=== PATIENT | female | born 1950 | race Caucasian/White ===

== ENCOUNTER 2017-05-21 11:26 | Observation (INO) ==
[2017-05-21] MEDS ORDERED: SODIUM CHLORIDE 0.9% 1,000 ML IV STA (11:47)
--- NOTE | 2017-05-21 12:03 | Emergency Department Note ---
Nav Elkins Mantricia, am scribing for, and in the presence of, Nj Springer MD 11:54. Racheal Elkins James D, MD, personally performed the services described in this documentation, ascribed by Eric Chopra in my presence, and it is both accurate and complete . Arrival - Arrival Chief Complaint: Syncope Stated Complaint: sob ED Nursing Triage Note: PT REPORTS INC SOB. PT ALSO REPORTS SHE HAD SYNCOPE EPISODE WITNESSED BY HER HER DAUGHTER/ NO LOC. PT DOES C/O PAIN TO BACK OF HER HEAD. PT RA O2 SATS 87%. Mode of Arrival: Stretcher Limitations: No Limitations Source: Patient, RN Notes Reviewed Time Seen by Provider: 05/21/17 11:44 - History of Present Illness HPI Narrative: Pt is a 66 y/o white female arriving to ED by EMS with c/o SOB that onset today. Pt seems to be confused and is a poor historian. When asked during exam about SOB, she denies experiencing SOB today. Daughter reports that pt became dizzy today and had a syncopal episode. She reports that pt was in and out of consciousness for "a few minutes." Pt denies any chest pain or heart palpitations. She states that she has not eaten any food today. Pt has a PMHx of HTN, TIA, and COPD with a SHx of smoking 1 pack of cigarettes daily. At time of exam, pt's heart rate is 86. No other complaints were reported to ED. Onset (ago): hour(s) Consistency: constant Severity: mild Allergies/Adverse Reactions: Allergies Allergy/AdvReac Type Severity Reaction Status Date / Time No Known Allergies Allergy Verified 04/28/15 08:54 Home Medications: Home Medications Medication Instructions Recorded Confirmed Type No Known Home Medications [No 05/21/17 05/21/17 History Known Home Medications] Review of System - Review of System 12 point system: reviewed and no additional remarkable complaints except as stated - Review of System Constitutional: Absent: chills, diaphoresis, fever Respiratory: Present: other (SOB). Absent: cough Cardiovascular: Absent: chest pain Gastrointestinal: Absent: abdominal pain, nausea, vomiting, diarrhea Musculoskeletal: Absent: arm pain, back pain, leg pain, neck pain Medical,Surgical,& Family Hx - Medical History Cardio: History of: Hypertension Neurology: History of: TIA Endocrine: History of: Dyslipidemia Respiratory: History of: COPD - Family History Family History: Reports;: Family Diabetes - Social History Smoking Status: Smoker, status unknown Exam Vital Signs: Vital Signs Temperature 97.2 F L 05/21/17 11:45 Pulse Rate 80 05/21/17 11:45 Respiratory Rate 19 05/21/17 11:45 Blood Pressure 174/102 05/21/17 11:45 O2 Sat by Pulse Oximetry 96 05/21/17 11:31 GENERAL: This is a chronically ill-appearing white female in no apparent distress. VITAL SIGNS: Reviewed HEENT: Temporal wasting bilaterally. Pupils are equal round react to light. Extraocular movements are intact. Oropharynx is benign with dry mucous membranes. Poor dentition. NECK: Neck is soft and supple without tenderness. There are no masses. There is no lymphadenopathy. LUNGS: Lungs are clear to auscultation. Chest rises symmetrically. There is no chest wall tenderness. CV: Heart is regular rate and rhythm without murmurs rubs or gallops. ABDOMEN: Abdomen is soft, nontender to palpation. There are no abdominal abnormal masses palpated. There is no organomegaly. Bowel sounds are present and active. SKIN: Skin is warm and dry. No rash. Poor turgor EXTREMITIES: Patient has full range of motion without tenderness. There is no pedal edema. NEUROLOGIC: Awake alert and oriented to person. Cranial nerves II through XII are grossly intact. Motor is 5 over 5 in all extremities bilaterally. Course - Consultations Consultation #1: Discussed with hospitalist. Patient will be admitted to their service. Time: 13:08 Results - Labs CBC & BMP: 05/21/17 11:34 05/21/17 11:34 Lab Results: I have reviewed the patients labs Labs: Laboratory Tests 05/21/17 05/21/17 11:34 11:47 ABG pH 7.430 ABG pCO2 42.2 ABG pO2 125.0 H ABG HCO3 27.3 H ABG Total CO2 23.7 ABG O2 Saturation 98.4 ABG Base Excess 3.3 H Troponin I 0.071 H Serum Alcohol < 15 L - EKG EKG results: interpreted by ERMD - Impressions EKG: Normal sinus rhythm with a rate of 71, short VT, ST segment depression laterally consistent with ischemia. - Diagnostic Findings Procedure: Chest x-ray: image reviewed by me (Hyperinflation bilaterally. No infiltrates, no pleural effusions.), CT - chest: image reviewed by me (CT chest PA gram. No evidence of pulmonary embolus.), CT: image reviewed by me (CT head : No acute intracranial lesion or hemorrhage.) Disposition Clinical Impression: Syncope, Dyspnea, Hypokalemia Case discussed with: patient Disposition: Still a Patient Condition: Stable
--- NOTE | 2017-05-21 12:06 | EKG Report ---
Stationary ECG Study [facility] ER Test Date: 05/21/2017 12:05:45 PM Pat Name: THERESA JAIME Department: Room: Gender: F Open Claims Representative: : 1950 Requested by: Nj Lubin Order Number: [id number] Reading MD: FEDERICA ROSA Intervals [place] Rate: 71 P: 45 IA: 112 QRS: 120 QRSD: 89 T: -16 QT: 403 QTc: 426 Interpretive Statements SINUS RHYTHM POSSIBLE RIGHT VENTRICULAR HYPERTROPHY SEPTAL MYOCARDIAL INFARCTION, PROBABLY OLD MODERATE T-WAVE ABNORMALITY, CONSIDER LATERAL ISCHEMIA Electronically Signed On 05-21-17 18:19:23 CDT by FEDERICA ROSA [email or web address]
[2017-05-21 12:10] LABS: Basophils # 0.1 10*3/uL (0.0-0.2); Basophils % 0.7 % (0.0-0.8); Eosinophils # 0.1 10*3/uL (0.0-0.87); Eosinophils % 1.6 % (0.00-10.9); Hematocrit 44.6 VOL% (35.7-47.0); Hemoglobin 15.6 GM/DL (12.0-16.0); Immature Granulocytes % 0.2 %; Immature Granulocytes Absolute 0.02 #; Lymphocytes # 2.1 10*3/uL (1.4-4.0); Lymphocytes % 25.2 % (21.3-54.2); Mean Corpuscular Hemoglobin 30 PG (27-34); Mean Corpuscular Volume 85.8 FL (87-102); Mean Platelet Volume 10.8 FL (9.6-12.0); Monocytes # 0.5 10*3/uL (0.11-0.8); Monocytes % 5.7 % (1.7-12.7); Neutrophils # 5.5 10*3/uL (1.4-7.4); Neutrophils % 66.6 % (38.7-73.9); Platelet Count 184 T/CUMM (130-400); Red Cell Distribution Width 13.4 % (9.3-17.3); White Blood Count 8.3 T/CUMM (4-12)
[2017-05-21 12:18] LABS: ABG Base Excess 3.3 MMOL/L (-2.5-2.5); ABG HCO3 27.3 MMOL/L (20-26); ABG Oxygen Saturation 98.4 % (95-100); ABG PCO2 42.2 MM HG (35-48); ABG TCO2 23.7 MMOL/L (23-27)
[2017-05-21 12:23] LABS: INR 1.1; PT Patient Result 11.3 SECS
[2017-05-21 12:37] LABS: Alanine Aminotransferase 16 U/L (13-56); Albumin 4.2 G/DL (3.4-5.0); Alkaline Phosphatase 94 U/L (45-117); Aspartate Amino Transferase 16 U/L (0-37); Blood Urea Nitrogen 14 MG/DL (7-18); Calcium 9.5 MG/DL (8.5-10.1); Glucose 121 MG/DL (74-106); Osmolality,Calculated 274.8 MOS/KG (273-304); Sodium 137 MMOL/L (136-145); Total Protein 8.4 G/DL (6.4-8.3)
[2017-05-21 12:39] LABS: Troponin I Only 0.071 NG/ML (0.00-0.045)
--- NOTE | 2017-05-21 12:44 | XRay Report ---
Portable chest. Indication: Shortness of breath. Comparison: December 27, 2010. The heart and mediastinal contours are unremarkable. There is calcific plaque present within the aortic knob. The pulmonary vasculature is normal. The lung hamilton are hyperexpanded. Fibrotic changes are noted. No consolidation, pneumothorax, or pleural effusion. Osseous structures are unremarkable. Impression: COPD. PROCEDURE INTERPRETED AT [facility] [place] DEPARTMENT OF RADIOLOGY Final Report Signed by: Dr. Lien Ambrocio
[2017-05-21] MEDS ORDERED: POTASSIUM CHLORIDE 20 MEQ TABLET PO STA (13:08)
--- NOTE | 2017-05-21 13:08 | CT Report ---
CT of the head without contrast. Indication: Syncope. Comparison: April 28, 2015. There is heavy calcific plaque present within the intracranial internal carotid arteries. There is generalized prominence of the ventricles and sulci, consistent with atrophy. There are prominent areas of low density in the periventricular white matter. There are bilateral foci of low density within the thalami. No mass effect or midline shift. No evidence of acute hemorrhage. No cortical infarcts are seen at this time. The calvarium is intact. Included paranasal sinuses and the mastoid air cells are clear. Impression: Generalized atrophy, and prominent white matter low density. Usually, white matter low density is attributable to chronic microvascular ischemia. Other entities that can cause low density in the white matter including demyelinating processes and post viral and postinflammatory entities. There are bilateral the thalamic lacunar infarcts. No acute intracranial process is seen. The CT exam was performed using one or more of the following dose reduction techniques: Automated exposure control, adjustment of the mA and/or kV according to patient size, or use of iterative reconstruction technique. PROCEDURE INTERPRETED AT [facility] DEPARTMENT OF RADIOLOGY Final Report Signed by: Dr. Lien Ambrocio
--- NOTE | 2017-05-21 13:13 | CT Report ---
CT of the chest with intravenous contrast, PE protocol. Axial images were obtained with sagittal and coronal 2-D and 3-D reconstructions. Indication: Shortness of breath. 80 cc Omni 350. The heart size is normal. There is prominent left ventricular hypertrophy. There is coronary artery calcification. There is atherosclerotic plaque present within a normal caliber thoracic aorta. The thyroid gland is normal in size. There is no supraclavicular or axillary lymph. There is no hilar or mediastinal lymphadenopathy. There is no evidence of pulmonary thromboembolism. There are prominent centrilobular emphysematous changes bilaterally and interstitial fibrosis is seen. There is no infiltrate. No pleural effusion. There is increased soft tissue stranding around the central bronchi bilaterally in a perihilar distribution. The osseous structures are diffusely demineralized. Impression: Findings of COPD. No evidence of pulmonary thromboembolism. The CT exam was performed using one or more of the following dose reduction techniques: Automated exposure control, adjustment of the mA and/or kV according to patient size, or use of iterative reconstruction technique. PROCEDURE INTERPRETED AT [facility] DEPARTMENT OF RADIOLOGY Final Report Signed by: Dr. Lien Ambrocio
[2017-05-21] MEDS ORDERED: POTASSIUM CHLORIDE 20 MEQ TABLET PO ONE (13:17)
--- NOTE | 2017-05-21 14:59 | Hospitalist History & Physical ---
Assessment and Plan - Time spent with patient Time spent with patient: Greater than 30 minutes (1) Syncope Status: Acute Assessment and plan: Etiology unclear at present. Head CT is negative as well as chest CT. Will obtain echo, carotid Dopplers and obtain orthostatic vitals. Current Visit: Yes (2) COPD (chronic obstructive pulmonary disease) Status: Acute Assessment and plan: Evidence of COPD per chest x-ray. Patient is dyspneic however she does not feel any more short of breath than normal. Will initiate breathing treatments as needed. Current Visit: Yes (3) Dyspnea Status: Acute Assessment and plan: As above. Current Visit: Yes (4) Hypokalemia Status: Acute Assessment and plan: K Dur per potassium replacement Current Visit: Yes History of Present Illness Chief complaint: Syncope History of present illness: Ms. Ralph is a 66 year old white female with a past medical history significant for hypertension, TIA, COPD who presents to the emergency room today with complaints of syncope earlier today. Patient has a daughter who is at bedside report that the patient became dizzy and experienced a syncopal episode while in the kitchen this morning. The patient does admit to a history of medical noncompliance. She states that she has been noncompliant with her medications and has not taken any of her medicines in 2 months. She denies previous syncopal episodes. She further denies hematemesis or BRBPR, headache, chest pain, nausea/vomiting, numbness/tingling, lower extremity edema. Lab work is significant for PO2 125, HCO3 27.3, potassium 3.0, serum glucose 121, troponin I 0.071, total protein 8.4, serum alcohol less than 15. Head CT shows no acute intracranial process. CT of the chest PE reveals findings consistent with COPD, no evidence of pulmonary thromboembolism. This case has been discussed with both Dr. Springer, ER physician, and Dr. Cartagena, admitting physician, and the patient will be admitted to the hospital medicine service for further evaluation and treatment. CODE STATUS has been discussed; patient is a full code. Home medications have been reviewed and reconciled. Home Medications Medication Instructions Recorded Confirmed Type No Known Home Medications [No 05/21/17 05/21/17 History Known Home Medications] Allergies Allergy/AdvReac Type Severity Reaction Status Date / Time No Known Allergies Allergy Verified 04/28/15 08:54 Medical,Surgical,& Family Hx - Medical History Cardio: History of: Hypertension Neurology: History of: TIA Endocrine: History of: Dyslipidemia Respiratory: History of: COPD - Family History Family History: Reports;: Family Diabetes, Family Hypertension - Social History Smoking Status: Current every day smoker Have you smoked in the last 12 months: Yes Time spent discussing smoking cessation with patient: 3 to 10 minutes Frequency of Alcohol Use: Occasionally Type of Drug Use: None Marital Status: Single Lives With:: Children Functional capacity: independent ambulation 12 point system: reviewed and no additional remarkable complaints except as stated Exam - Constitutional Vitals: Period Temp Pulse Resp BP Sys/Graf Pulse Ox Last 24 Hr 97.2 F-97.2 F 80-80 18-19 174-174/102-102 96 Exam: General appearance: Under weight, no acute distress - Head Head exam: Present: normocephalic, atraumatic, poor dentition - Eye Eye exam: Present: EOMI. Absent: conjunctival injection, nystagmus Pupils: Present: REE, normal accommodation - ENT ENT exam: Present: normal exam, normal external ear exam - Neck Neck exam: Present: normal inspection. Absent: lymphadenopathy, tenderness, thyromegaly - Respiratory Respiratory exam: Present: Decreased breath sounds bilaterally. Absent: rales, rhonchi, wheezes - Cardiovascular Cardiovascular exam: Present: regular rate and rhythm. Absent: carotid bruit, gallop, rubs - GI/Abdominal GI/Abdominal exam: Present: normal bowel sounds. Absent: ascites, distended, mass - Extremities Exam Extremities exam: Present: normal inspection, normal capillary refill. Absent: edema - Back Exam Back exam: Absent: CVA tenderness (L), CVA tenderness (R) - Neurological Exam Neurological exam: Present: alert, oriented X3, CN II-XII intact, reflexes normal - Psychiatric Psychiatric exam: Present: normal affect, normal mood - Skin Skin exam: Present: normal color, warm, dry Results - Labs CBC & BMP: 05/21/17 11:34 05/21/17 11:34 Lab Results: I have reviewed the past 24 hour labs - Diagnostic Findings Procedure: CT - chest: image reviewed by me, report reviewed by me, CT: image reviewed by me, report reviewed by me
[2017-05-21] MEDS ORDERED: ALBUTEROL/IPRATROPIUM 3 ML NEB RESP TX PRN (15:40)
[2017-05-21] MEDS ORDERED: ONDANSETRON 4 MG/2 ML VIAL IV PRN (15:40)
[2017-05-21] MEDS ORDERED: hydrALAZINE 20 MG/1 ML VIAL IV PRN (15:40)
[2017-05-21] MEDS ORDERED: cloNIDine 0.1 MG TABLET PO ONE (17:15)
[2017-05-21] MEDS: LISINOPRIL/HCTZ 20-25 MG TABLET PO SCH (17:30)
[2017-05-21] MEDS: PANTOPRAZOLE 40 MG TABLET PO SCH (17:31)
[2017-05-21] MEDS: SODIUM CHLORIDE 0.9% 1,000 ML IV SCH (17:31)
[2017-05-21 17:42] LABS: Apearance,Urine CLEAR (Clear); Bilirubin,Urine Negative (Negative); Blood, Urine Small mg/dL (Negative); Glucose,Urine (UA) Negative (Negative); Ketones,Urine Negative (Negative); Mucus,Urine Occasional /LPF (Occasional); Nitrite,Urine Negative (Negative); Protein,Urine Negative; RBC,Urine 1 /HPF (0-4); Squamous Epithelial Cell,Urine Occasional /HPF (0-10); Urine Color Straw (Yellow); Urine Specific Gravity 1.015 (1.001-1.035); Urine Urobilinogen < 2.0 EU/DL (0.2-1.0); WBC,Urine 1 /HPF (0-6)
[2017-05-21 17:49] LABS: Barbiturates Screen,Urine Negative (Negative); Benzodiazepines Screen,Urine Negative (Negative); Cannabinoid Screen,Urine Negative (Negative); Opiate Screen,Urine Negative (Negative); Phencyclidine Screen,Urine Negative (Negative)
[2017-05-21] MEDS: ENOXAPARIN 40 MG/0.4 ML SYRINGE SUBCUT SCH (20:47)
[2017-05-21] MEDS: CARVEDILOL 12.5 MG TABLET PO SCH (20:47)
[2017-05-22] MEDS: SODIUM CHLORIDE 0.9% 1,000 ML IV SCH ×3 (01:53→17:02)
[2017-05-22 06:47] LABS: Basophils # 0.1 10*3/uL (0.0-0.2); Basophils % 0.5 % (0.0-0.8); Eosinophils # 0.2 10*3/uL (0.0-0.87); Eosinophils % 1.4 % (0.00-10.9); Immature Granulocytes % 0.4 %; Immature Granulocytes Absolute 0.04 #; Lymphocytes # 1.7 10*3/uL (1.4-4.0); Lymphocytes % 15.7 % (21.3-54.2); Mean Corpuscular HGB Conc 34.2 GM/DL (32-36); Mean Corpuscular Hemoglobin 30 PG (27-34); Mean Corpuscular Volume 87.6 FL (87-102); Mean Platelet Volume 11.6 FL (9.6-12.0); Monocytes # 0.7 10*3/uL (0.11-0.8); Monocytes % 6.7 % (1.7-12.7); Neutrophils # 8.3 10*3/uL (1.4-7.4); Neutrophils % 75.3 % (38.7-73.9); Platelet Count 172 T/CUMM (130-400); Red Cell Distribution Width 13.9 % (9.3-17.3)
[2017-05-22 07:02] LABS: Calcium 8.5 MG/DL (8.5-10.1); Osmolality,Calculated 286.1 MOS/KG (273-304); Potassium 3.1 MMOL/L (3.5-5.1)
[2017-05-22 07:13] LABS: Hemoglobin 12.3 GM/DL (12.0-16.0); Red Blood Count 4.11 MC/CUMM (3.8-5.5)
[2017-05-22] MEDS: LISINOPRIL/HCTZ 20-25 MG TABLET PO SCH (09:12)
[2017-05-22] MEDS: PANTOPRAZOLE 40 MG TABLET PO SCH (09:12)
[2017-05-22] MEDS: CARVEDILOL 12.5 MG TABLET PO SCH (09:12)
[2017-05-22] MEDS ORDERED: POTASSIUM CHLORIDE 20 MEQ TABLET PO ONE (09:42)
[2017-05-22] MEDS: amLODIPine 10 MG TABLET PO SCH (10:39)
[2017-05-22] MEDS: NEBIVOLOL 10 MG TABLET PO SCH (10:39)
--- NOTE | 2017-05-22 13:39 | Hospitalist Progress Note ---
Assessment and Plan (1) Syncope Status: Acute Assessment and plan: 1)syncope- no further symptoms. She thinks she was out for 10 minutes. Her daughter was with her but is not here to give history or confirm that she was unresponisve for 10 minutes, which seems like a long time. echo, dopplers, carotids pending. tele has been NSR since admission. If other studies ok, likely this was due to her HTN. No focal neuro deficits. 2)HTN- restart Bystolic instead of coreg. add also scheduled oral hydralazine. continue lisinopril. add asa. 3)COPD- at baseline. Current Visit: Yes (2) Hypokalemia Status: Acute Current Visit: Yes (3) COPD (chronic obstructive pulmonary disease) Status: Acute Current Visit: Yes Hospitalist: Subjective Interval history: Mrs Ralph is feeling well today and wants to go home. She understands she has some tests that should be completed prior to discharge and agrees to stay. She stopped her meds 6 months ago because the doctor she liked quit takign . She did not like the other doctor she saw and describes herself and a "Problem" because she is obnoxious and rude and wants what she wants. She used to take Bystolic and says it really worked. Exam - Constitutional Vitals: Period Temp Pulse Resp BP Sys/Graf Pulse Ox Last 24 Hr 97.2 F-98.2 F 63-78 16-24 129-223/58-105 92-100 General appearance: no acute distress, under weight - Eye Eye exam: Present: EOMI. Absent: scleral icterus - Respiratory Respiratory exam: Present: clear to auscultation bilaterally - Cardiovascular Cardiovascular exam: Present: regular rate and rhythm - GI/Abdominal GI/Abdominal exam: Present: normal bowel sounds, soft. Absent: tenderness - Extremities Exam Extremities exam: Absent: edema Results - Labs CBC & BMP: 05/22/17 06:02 05/22/17 06:02 Lab Results: I have reviewed the past 24 hour labs Specialty Discharge - Follow Up or Referrals Follow up with: Tone Antonio MD [Physician] - 05/30/17 9:30 am
[2017-05-22] MEDS: ASPIRIN EC 325 MG TABLET PO SCH (14:25)
--- NOTE | 2017-05-22 17:43 | ECHO Report ---
Alba Ralph Exam Date: 05/22/2017 11:03 Referring Physician: Technologist: ollie Mccallum ARDMS, RVT Age: 66 Ht (in): 61 Wt (lb): 85 Gender: F Exam Location: [facility] Echo Indications: Syncope and collapse, Shortness of breath BP: 185 / 82 HR: 63 Rhythm: Sinus Technical Quality: average IMPRESSIONS Left ventricular ejection fraction is estimated at 65%. There is grade 1 diastolic dysfunction. MEASUREMENTS (Male / Female) Normal Values 2D ECHO LV Diastolic Diameter PLAX 3.6 cm 4.2 - 5.9 / 3.9 - 5.3 cm LV Systolic Diameter PLAX 2.1 cm LV Fractional Shortening PLAX 41.6 % IVS Diastolic Thickness 1.5 cm 0.6 - 1.0 / 0.6 - 0.9 cm LVPW Diastolic Thickness 0.9 cm 0.6 - 1.0 / 0.6 - 0.9 cm RV Internal Dim ED PLAX 1.9 cm Aortic Root Diameter 2.1 cm LA Systolic Diameter LX 2.9 cm 3.0 - 4.0 / 2.7 - 3.8 cm FINDINGS Left Ventricle Normal left ventricular cavity size. Left ventricular ejection fraction is estimated at 65%. There is grade 1 diastolic dysfunction Right Ventricle The right ventricle is normal in size and function. Right Atrium The right atrium is normal in size. Left Atrium The left atrium is normal in size. Mitral Valve Morphologically normal mitral valve. Mild mitral valve regurgitation. Aortic Valve Morphologically normal aortic valve without significant sclerosis or stenosis. There is no aortic regurgitation. Tricuspid Valve Morphologically normal tricuspid valve without significant stenosis or regurgitation. Pulmonic Valve Morphologically normal pulmonic valve without significant stenosis. There is no pulmonic regurgitation. Pericardium Normal pericardium without effusion. Aorta Normal ascending aorta dimension. Pamela Vivar (Electronically Signed) Final Date: 22 May 2017 17:42
[2017-05-22] MEDS: ENOXAPARIN 40 MG/0.4 ML SYRINGE SUBCUT SCH (20:59)
[2017-05-23] MEDS: SODIUM CHLORIDE 0.9% 1,000 ML IV SCH ×2 (01:10→08:45)
[2017-05-23 05:40] LABS: Basophils # 0.1 10*3/uL (0.0-0.2); Basophils % 0.5 % (0.0-0.8); Eosinophils # 0.3 10*3/uL (0.0-0.87); Eosinophils % 2.7 % (0.00-10.9); Hematocrit 33.9 VOL% (35.7-47.0); Hemoglobin 11.9 GM/DL (12.0-16.0); Immature Granulocytes % 0.4 %; Immature Granulocytes Absolute 0.04 #; Lymphocytes # 2.9 10*3/uL (1.4-4.0); Lymphocytes % 30.2 % (21.3-54.2); Mean Corpuscular HGB Conc 35.1 GM/DL (32-36); Mean Corpuscular Hemoglobin 30 PG (27-34); Mean Corpuscular Volume 86.3 FL (87-102); Mean Platelet Volume 11.4 FL (9.6-12.0); Monocytes # 0.8 10*3/uL (0.11-0.8); Monocytes % 8.9 % (1.7-12.7); Neutrophils # 5.4 10*3/uL (1.4-7.4); Neutrophils % 57.3 % (38.7-73.9); Platelet Count 169 T/CUMM (130-400); Red Blood Count 3.93 MC/CUMM (3.8-5.5); White Blood Count 9.4 T/CUMM (4-12)
[2017-05-23 06:06] LABS: Calcium 8.4 MG/DL (8.5-10.1); Osmolality,Calculated 279.4 MOS/KG (273-304); Potassium 3.1 MMOL/L (3.5-5.1)
[2017-05-23] MEDS: ASPIRIN EC 325 MG TABLET PO SCH (08:38)
[2017-05-23] MEDS: amLODIPine 10 MG TABLET PO SCH (08:39)
[2017-05-23] MEDS: NEBIVOLOL 10 MG TABLET PO SCH (08:40)
[2017-05-23] MEDS: PANTOPRAZOLE 40 MG TABLET PO SCH (08:41)
[2017-05-23] MEDS ORDERED: LISINOPRIL/HCTZ 20-12.5 MG TABLET PO SCH (09:00)
[2017-05-23] MEDS ORDERED: ATORVASTATIN 20 MG TABLET PO SCH (09:30)
--- NOTE | 2017-05-23 09:30 | Discharge Summary ---
Hospital Course - Hospital Course Hospital Course: Ms Ralph presented after a spell of syncope at home. She has been monitored on telemetry during her stay and her heart rhythm has been NSR. HEr echo looked normal. Her carotid dopplers showed some blockage and CTA of neck report is pending. She has no focal neuro changes or any recurrence of her symptoms. Her uncontrolled blood pressure is the most likely reason she had a spell. She stopped her meds months ago and her BP at presentation was over 200. We have reinitiated medicine and she is tolerating it so far with most recent SBP of 132. She will follow up in clinic with a new doctor, Dr Begum in a week. She will also see Dr Tomas in a week or so to get results of the CTA and arrange monitoring of her carotid disease. She will also start asa daily and lipitor. She is feeling good and is anxious to return home. As she has received maximum benefit from this hospital stay she will be discharged home today. - Time spent with patient Time with patient DS: Greater than 30 minutes (discharge planning, exam and test review, medicine reconciliation, documentation required 40 minutes) Diagnosis - Discharge Diagnosis (1) Syncope Status: Resolved (2) Hypokalemia Status: Resolved (3) COPD (chronic obstructive pulmonary disease) Status: Chronic (4) Uncontrolled hypertension Status: Chronic Specialty Discharge - Follow Up or Referrals Follow up with: Tone Antonio MD [Physician] - 05/30/17 9:30 am Don Tomas MD [Physician] - 2 Weeks (follow up CTA and monitor carotid disease) - Speciality Discharge Instructions Internal Medicine Instructions: Take your new medicines and allow time to adjust to being on meds before you decide whether you need to change them. Discharge Plan - Discharge Data Disposition: Disch To Home/Self Care Condition at Discharge: Stable Discharge Diet: heart healthy Activity: resume usual activities as tolerated - Discharge Medications New Aspirin 81 mg PO DAILY #30 tab.chew Atorvastatin [Lipitor] 20 mg PO DAILY #30 tablet Lisinopril/Hctz 20-12.5 [Prinzide 20-12.5] 2 tablet PO DAILY #30 tablet amLODIPine [Norvasc] 10 mg PO DAILY #30 tablet Nebivolol [Bystolic] 20 mg PO DAILY #30 tablet - Follow Up or Referral Follow Up: Tone Antonio MD [Physician] - 05/30/17 9:30 am Don Tomas MD [Physician] - - Forms/Instructions Instructions: Chronic Hypertension (DC) Exam - Constitutional Vitals: Period Temp Pulse Resp BP Sys/Graf Pulse Ox Last 24 Hr 97.4 F-98.0 F 60-73 18-20 142-168/65-81 93-98 General appearance: no acute distress, under weight - Head Head exam: Present: normocephalic, atraumatic - Eye Eye exam: Present: EOMI. Absent: scleral icterus - Respiratory Respiratory exam: Present: clear to auscultation bilaterally - Cardiovascular Cardiovascular exam: Present: regular rate and rhythm - GI/Abdominal GI/Abdominal exam: Present: normal bowel sounds, soft. Absent: tenderness - Extremities Exam Extremities exam: Absent: edema - Neurological Exam Neurological exam: Present: alert, oriented X3 - Skin Skin exam: Present: warm, dry Discharge Results Procedures and tests throughout hospitalization: Pending Orders 05/21/17 11:44 TSH, Sensitive, S Routine 05/23/17 09:23 Lipid Panel Stat 05/23/17 09:25 US carotid duplex BI Stat 05/24/17 04:00 Basic Metabolic Panel IN AM Comp Blood Count Auto Diff IN AM Labs on day of discharge: Labs from last 24 hours 05/23/17 05/23/17 05:20 05:20 WBC 9.4 RBC 3.93 Hgb 11.9 L Hct 33.9 L MCV 86.3 L MCH 30 MCHC 35.1 RDW 14.0 Plt Count 169 MPV 11.4 Neut % (Auto) 57.3 Lymph % (Auto) 30.2 [place] % (Auto) 8.9 Eos % (Auto) 2.7 Baso % (Auto) 0.5 Neut # (Auto) 5.4 Lymph # (Auto) 2.9 [place] # (Auto) 0.8 Eos # (Auto) 0.3 Baso # (Auto) 0.1 Immature Gran % 0.4 Nucleated RBC % 0.0 Immature Gran # 0.04 Nucleated RBCs # 0.00 Immature Plt Fraction 0.0 Sodium 140 Potassium 3.1 L Chloride 105 Carbon Dioxide 26 Anion Gap 12.1 BUN 15 Creatinine 0.70 GFR Calculation 70 BUN/Creatinine Ratio 21.00 H Glucose 101 Calculated Osmolality 279.4 Calcium 8.4 L DS: Provider Date of admission: 05/21/17 13:44 Primary care physician: . No PCP Attending physician on admission: Rubin Cartagena Jr., MD Discharging clinician: Erin Cesar MD
[2017-05-23 09:48] LABS: Risk Ratio 3.19
--- NOTE | 2017-05-23 14:00 | Ultrasound Report ---
US carotid duplex BI Indication: Syncope. Comparison: None. Technique: Multiple longitudinal and transverse real-time sonographic images of the bilateral carotid arterial systems are obtained with grayscale, spectral, and color Doppler analysis. Findings: Peak systolic velocities within the right CCA, proximal ICA, and distal ICA are 96, 173, and 62 cm/s respectively. Peak systolic velocities within the left CCA, proximal ICA, and distal ICA are 61, 114, and 111 cm/s respectively. ICA/CCA ratios on the right and left are 1.8 and 1.9 respectively. Antegrade flow demonstrated within the bilateral vertebral arteries. Grayscale imaging demonstrates moderate bilateral atherosclerotic plaque. IMPRESSION: Elevated velocity within the proximal right cervical ICA suggesting 50-69% narrowing. Consider CTA of the neck for further evaluation. No convincing sonographic evidence of significant (50% or greater) narrowing of the left cervical internal carotid artery. Indirect NASCET criteria utilized. PROCEDURE INTERPRETED AT [facility] DEPARTMENT OF RADIOLOGY Final Report Signed by: Dr Molina Geronimo
[2017-05-23 15:25] VITALS: BP 132/65
--- NOTE | 2017-05-23 18:10 | CT Report ---
History is syncope abnormal carotid Doppler Axial images obtained from the base of the skull through the top the aortic arch with 2-D multiplanar and 3-D CTA reconstruction images also stored and interpreted 80 cc Omni 350 utilized There are emphysematous changes in the visualized upper lung [place]. There are degenerative changes in cervical spine. There is an ovoid, 1.5 x 2.2 cm lucent lesion in the mandible anteriorly there is mild plaque at the aortic arch. There are mild to moderate amount soft and calcified plaque and stenoses in both proximal subclavian arteries. The right vertebral artery is dominant. There is atherosclerotic plaque throughout both vertebral arteries. There is mild stenosis the proximal right vertebral artery. There is a moderate amount of soft and calcified plaque in the proximal ICA on the right with a maximum 40% diameter stenosis, 1.5 cm distal to its origin. There is tortuosity of the more distal cervical ICA on the right where there is soft and calcified plaque and a more focal, 70-80% stenosis immediately below the skull base. There is a moderate to large amount of soft and calcified plaque in the distal common carotid artery on the left and at the origin of the left ICA were there is a maximum 60% diameter stenosis. There is a 40% maximum diameter stenosis in the left ICA 1.5 cm distal to its origin. Impression: 1. Maximum 40% diameter stenosis the proximal ICA on the right 2. Maximum 60% diameter stenosis at the origin of the left ICA 3. 70-80% diameter stenosis of the distal cervical ICA on the right just below the skull base 4. Lucent lesion in the mandible possibly related to odontogenic the disease or cyst. Clinical correlation 5. Emphysematous changes in the upper lung [place] requested 6. Other atherosclerotic changes including mild/moderate stenoses of the great vessels The CT exam was performed using one or more of the following dose reduction techniques: Automated exposure control, adjustment of the mA and/or kV according to patient size, or use of iterative reconstruction technique. PROCEDURE INTERPRETED AT [facility] DEPARTMENT OF RADIOLOGY Final Report Signed by: Dr. Liza Ambrocio
== END 2017-05-23 18:05 | disposition home or self-care (01) ==
LOC: EDBD → EDUNIT# → N.EDINP 11:26 → N.ED 11:26 → SUATTDRO 13:44 → N.EDINP 16:48 → N.4E 17:21
PROVIDERS: ADMIT Internal Medicine Nephrology; ATTEND Internal Medicine

== ENCOUNTER 2017-10-19 20:40 | Inpatient (IN) ==
[2017-10-19] MEDS ORDERED: SODIUM CHLORIDE 0.9% 500 ML IV STA (22:51)
[2017-10-19 23:05] LABS: Basophils # 0.1 10*3/uL (0.0-0.2); Basophils % 0.9 % (0.0-0.8); Eosinophils # 0.4 10*3/uL (0.0-0.87); Eosinophils % 4.3 % (0.00-10.9); Hematocrit 31.4 VOL% (35.7-47.0); Immature Granulocytes % 0.3 %; Immature Granulocytes Absolute 0.03 #; Lymphocytes # 2.1 10*3/uL (1.4-4.0); Lymphocytes % 22.1 % (21.3-54.2); Mean Corpuscular Hemoglobin 30 PG (27-34); Mean Corpuscular Volume 86.5 FL (87-102); Mean Platelet Volume 10.5 FL (9.6-12.0); Monocytes # 0.8 10*3/uL (0.11-0.8); Monocytes % 8.4 % (1.7-12.7); Platelet Count 239 T/CUMM (130-400); Red Blood Count 3.63 MC/CUMM (3.8-5.5); Red Cell Distribution Width 12.9 % (9.3-17.3); White Blood Count 9.3 T/CUMM (4-12)
[2017-10-19 23:13] LABS: PT Patient Result 10.5 SECS
[2017-10-19 23:24] LABS: Albumin 3.9 G/DL (3.4-5.0); Bilirubin,Total 0.5 MG/DL (0.2-1.0); Calcium 9.2 MG/DL (8.5-10.1); Magnesium 2.2 MG/DL (1.8-2.4); Osmolality,Calculated 260.9 MOS/KG (273-304); Potassium 3.4 MMOL/L (3.5-5.1); Total Protein 7.3 G/DL (6.4-8.3); Troponin I Only 0.015 NG/ML (0.00-0.045)
[2017-10-19 23:47] LABS: Apearance,Urine Slightly Hazy (Clear); Bilirubin,Urine Negative (Negative); Blood, Urine Negative (Negative); Glucose,Urine (UA) Negative (Negative); Ketones,Urine Negative (Negative); Nitrite,Urine Negative (Negative); Protein,Urine Negative; RBC,Urine 6 /HPF (0-4); Squamous Epithelial Cell,Urine Occasional /HPF (0-10); Urine Color Yellow (Yellow); Urine Specific Gravity 1.006 (1.001-1.035); Urine Urobilinogen < 2.0 EU/DL (0.2-1.0); WBC,Urine 18 /HPF (0-6)
[2017-10-20 00:02] LABS: Barbiturates Screen,Urine Negative (Negative); Benzodiazepines Screen,Urine Negative (Negative); Cannabinoid Screen,Urine Negative (Negative); Opiate Screen,Urine Negative (Negative); Phencyclidine Screen,Urine Negative (Negative)
[2017-10-20] MEDS ORDERED: cefTRIAXone 1,000 MG in SODIUM CHLORIDE 0.9% 100 ML IV STA (00:04)
[2017-10-20 00:12] LABS: Sedimentation Rate-Westergren 33 MM/HR (0-30)
[2017-10-20] MEDS ORDERED: cefTRIAXone 1,000 MG VIAL ONE (00:20)
[2017-10-20] MEDS ORDERED: ONDANSETRON 4 MG/2 ML VIAL IV PRN (02:14)
[2017-10-20] MEDS ORDERED: ACETAMINOPHEN 325 MG TABLET PO PRN (02:14)
[2017-10-20] MEDS: SODIUM CHLORIDE 0.9% 1,000 ML IV SCH ×3 (03:30→21:15)
[2017-10-20] MEDS ORDERED: POTASSIUM CHLORIDE 20 MEQ TABLET PO ONE (03:30)
[2017-10-20 06:02] LABS: Basophils # 0.1 10*3/uL (0.0-0.2); Basophils % 0.7 % (0.0-0.8); Eosinophils # 0.4 10*3/uL (0.0-0.87); Eosinophils % 5.6 % (0.00-10.9); Hematocrit 30.2 VOL% (35.7-47.0); Hemoglobin 10.6 GM/DL (12.0-16.0); Immature Granulocytes % 0.3 %; Immature Granulocytes Absolute 0.02 #; Lymphocytes # 1.8 10*3/uL (1.4-4.0); Mean Corpuscular HGB Conc 35.1 GM/DL (32-36); Mean Corpuscular Hemoglobin 30 PG (27-34); Mean Platelet Volume 10.6 FL (9.6-12.0); Monocytes # 0.8 10*3/uL (0.11-0.8); Neutrophils # 4.5 10*3/uL (1.4-7.4); Neutrophils % 59.4 % (38.7-73.9); Platelet Count 232 T/CUMM (130-400); Red Blood Count 3.51 MC/CUMM (3.8-5.5); Red Cell Distribution Width 13.1 % (9.3-17.3); White Blood Count 7.6 T/CUMM (4-12)
[2017-10-20 06:40] LABS: Calcium 8.7 MG/DL (8.5-10.1); Osmolality,Calculated 265.4 MOS/KG (273-304); Potassium 3.6 MMOL/L (3.5-5.1); Thyroid Stimulating Hormone 2.89 uIU/ml (0.358-3.74)
[2017-10-20 06:41] LABS: Folate 12.8 NG/ML (5.4-24.0); Vitamin B12 470 PG/ML (211-911)
[2017-10-20 07:03] LABS: % Iron Saturation 17.6 % (18-50)
[2017-10-20 07:37] LABS: Sedimentation Rate-Westergren 31 MM/HR (0-30)
[2017-10-20] MEDS: ENOXAPARIN 40 MG/0.4 ML SYRINGE SUBCUT SCH (08:38)
[2017-10-20] MEDS: amLODIPine 10 MG TABLET PO SCH (08:38)
[2017-10-20] MEDS: CLOPIDOGREL 75 MG TABLET PO SCH (08:38)
[2017-10-20] MEDS: PANTOPRAZOLE 40 MG TABLET PO SCH (08:38)
[2017-10-20] MEDS: ATORVASTATIN 20 MG TABLET PO SCH (08:38)
[2017-10-20] MEDS: NEBIVOLOL 10 MG TABLET PO SCH (08:38)
[2017-10-20 10:11] LABS: Hemoglobin A1 (Alkaline) 97.1 % (96.5-98.5); Hemoglobin A2 (Alkaline) 2.9 % (1.5-3.5)
[2017-10-20] MEDS: cefTRIAXone 1,000 MG in SYRINGE 1 EACH IV SCH (21:15)
[2017-10-21 06:05] LABS: Basophils # 0.1 10*3/uL (0.0-0.2); Basophils % 0.9 % (0.0-0.8); Eosinophils # 0.5 10*3/uL (0.0-0.87); Eosinophils % 5.1 % (0.00-10.9); Hematocrit 36.1 VOL% (35.7-47.0); Hemoglobin 11.8 GM/DL (12.0-16.0); Immature Granulocytes % 0.3 %; Immature Granulocytes Absolute 0.03 #; Lymphocytes # 1.8 10*3/uL (1.4-4.0); Lymphocytes % 18.7 % (21.3-54.2); Mean Corpuscular HGB Conc 32.7 GM/DL (32-36); Mean Corpuscular Hemoglobin 30 PG (27-34); Mean Corpuscular Volume 90.9 FL (87-102); Mean Platelet Volume 10.9 FL (9.6-12.0); Monocytes # 0.9 10*3/uL (0.11-0.8); Neutrophils # 6.2 10*3/uL (1.4-7.4); Platelet Count 250 T/CUMM (130-400); Red Blood Count 3.97 MC/CUMM (3.8-5.5); White Blood Count 9.4 T/CUMM (4-12)
[2017-10-21] MEDS: CLOPIDOGREL 75 MG TABLET PO SCH (09:05)
[2017-10-21] MEDS: PANTOPRAZOLE 40 MG TABLET PO SCH (09:05)
[2017-10-21] MEDS: ATORVASTATIN 20 MG TABLET PO SCH (09:05)
[2017-10-21] MEDS: NEBIVOLOL 10 MG TABLET PO SCH (09:05)
[2017-10-21] MEDS: amLODIPine 10 MG TABLET PO SCH (09:05)
[2017-10-21] MEDS: ENOXAPARIN 40 MG/0.4 ML SYRINGE SUBCUT SCH (09:05)
[2017-10-21] MEDS: cefTRIAXone 1,000 MG in SYRINGE 1 EACH IV SCH (21:43)
[2017-10-22] MEDS: PANTOPRAZOLE 40 MG TABLET PO SCH (09:14)
[2017-10-22] MEDS: ATORVASTATIN 20 MG TABLET PO SCH (09:14)
[2017-10-22] MEDS: CLOPIDOGREL 75 MG TABLET PO SCH (09:14)
[2017-10-22] MEDS: ENOXAPARIN 40 MG/0.4 ML SYRINGE SUBCUT SCH (09:14)
[2017-10-22] MEDS: amLODIPine 10 MG TABLET PO SCH (09:14)
[2017-10-22] MEDS: NEBIVOLOL 10 MG TABLET PO SCH (09:14)
[2017-10-22] MEDS: SODIUM CHLORIDE 0.9% 1,000 ML IV SCH ×3 (17:46→22:17)
[2017-10-22] MEDS: FERROUS SULFATE 325 MG TABLET PO SCH (21:36)
[2017-10-22] MEDS: cefTRIAXone 1,000 MG in SYRINGE 1 EACH IV SCH (21:36)
[2017-10-23] MEDS: SODIUM CHLORIDE 0.9% 1,000 ML IV SCH ×2 (05:32→16:47)
[2017-10-23 06:25] LABS: Risk Ratio 2.98; VLDL CHOLESTEROL 15.6 MG/DL
[2017-10-23] MEDS: PANTOPRAZOLE 40 MG TABLET PO SCH (10:09)
[2017-10-23] MEDS: CLOPIDOGREL 75 MG TABLET PO SCH (10:09)
[2017-10-23] MEDS: NEBIVOLOL 10 MG TABLET PO SCH (10:09)
[2017-10-23] MEDS: amLODIPine 10 MG TABLET PO SCH (10:09)
[2017-10-23] MEDS: ATORVASTATIN 20 MG TABLET PO SCH (10:09)
[2017-10-23] MEDS: FERROUS SULFATE 325 MG TABLET PO SCH ×2 (10:09→22:45)
[2017-10-23] MEDS: ENOXAPARIN 40 MG/0.4 ML SYRINGE SUBCUT SCH (10:10)
[2017-10-23] MEDS: LISINOPRIL/HCTZ 20-12.5 MG TABLET PO SCH (15:03)
[2017-10-23] MEDS: cefTRIAXone 1,000 MG in SYRINGE 1 EACH IV SCH (22:44)
[2017-10-24] MEDS: SODIUM CHLORIDE 0.9% 1,000 ML IV SCH (06:45)
[2017-10-24 06:51] LABS: Basophils # 0.1 10*3/uL (0.0-0.2); Basophils % 0.9 % (0.0-0.8); Eosinophils # 0.7 10*3/uL (0.0-0.87); Eosinophils % 10.1 % (0.00-10.9); Hematocrit 30.2 VOL% (35.7-47.0); Hemoglobin 10.5 GM/DL (12.0-16.0); Immature Granulocytes % 0.1 %; Immature Granulocytes Absolute 0.01 #; Lymphocytes # 2.1 10*3/uL (1.4-4.0); Lymphocytes % 30.7 % (21.3-54.2); Mean Corpuscular HGB Conc 34.8 GM/DL (32-36); Mean Corpuscular Hemoglobin 31 PG (27-34); Mean Corpuscular Volume 88.3 FL (87-102); Mean Platelet Volume 10.4 FL (9.6-12.0); Monocytes # 0.6 10*3/uL (0.11-0.8); Monocytes % 9.4 % (1.7-12.7); Neutrophils # 3.3 10*3/uL (1.4-7.4); Neutrophils % 48.8 % (38.7-73.9); Platelet Count 230 T/CUMM (130-400); Red Blood Count 3.42 MC/CUMM (3.8-5.5); Red Cell Distribution Width 13.1 % (9.3-17.3); White Blood Count 6.7 T/CUMM (4-12)
[2017-10-24 07:10] VITALS: BP 146/77
[2017-10-24 07:18] LABS: Albumin 3.1 G/DL (3.4-5.0); Bilirubin,Total 0.4 MG/DL (0.2-1.0); Magnesium 1.9 MG/DL (1.8-2.4); Osmolality,Calculated 281.3 MOS/KG (273-304); Potassium 3.8 MMOL/L (3.5-5.1); Total Protein 6.3 G/DL (6.4-8.3)
[2017-10-24] MEDS ORDERED: ASPIRIN EC 81 MG TABLET PO SCH (09:00)
[2017-10-24] MEDS: amLODIPine 10 MG TABLET PO SCH (09:15)
[2017-10-24] MEDS: ATORVASTATIN 20 MG TABLET PO SCH (09:15)
[2017-10-24] MEDS: NEBIVOLOL 10 MG TABLET PO SCH (09:15)
[2017-10-24] MEDS: CLOPIDOGREL 75 MG TABLET PO SCH (09:15)
[2017-10-24] MEDS: PANTOPRAZOLE 40 MG TABLET PO SCH (09:16)
[2017-10-24] MEDS: FERROUS SULFATE 325 MG TABLET PO SCH (09:16)
[2017-10-24] MEDS: LISINOPRIL/HCTZ 20-12.5 MG TABLET PO SCH (09:16)
[2017-10-24] MEDS: ENOXAPARIN 40 MG/0.4 ML SYRINGE SUBCUT SCH (09:17)
[2017-10-24] MEDS ORDERED: PNEUMOCOCCAL VACCINE (13 VALENT) 0.5 ML SYRINGE IM ONE (11:00)
== END 2017-10-24 12:03 | disposition home or self-care (01) | DRG 689 ==
LOC: N.ED 20:40 → N.EDINP 10-20 02:13 → N.5E 10-20 02:52
PROVIDERS: ADMIT Hospitalist; ATTEND Hospitalist

== ENCOUNTER 2017-12-19 22:58 | Inpatient (IN) ==
[2017-12-20 00:42] LABS: Apearance,Urine CLEAR (Clear); Bilirubin,Urine Negative (Negative); Blood, Urine Small mg/dL (Negative); Glucose,Urine (UA) Negative (Negative); Ketones,Urine Negative (Negative); Nitrite,Urine Negative (Negative); Protein,Urine Negative; RBC,Urine 1 /HPF (0-4); Squamous Epithelial Cell,Urine Occasional /HPF (0-10); Urine Color Straw (Yellow); Urine Specific Gravity 1.003 (1.001-1.035); Urine Urobilinogen < 2.0 EU/DL (0.2-1.0); WBC,Urine 3 /HPF (0-6)
[2017-12-20] MEDS ORDERED: SODIUM CHLORIDE 0.9% 500 ML IV STA (01:02)
[2017-12-20 01:08] LABS: Barbiturates Screen,Urine Negative (Negative); Benzodiazepines Screen,Urine Negative (Negative); Cannabinoid Screen,Urine Negative (Negative); Opiate Screen,Urine Negative (Negative); Phencyclidine Screen,Urine Negative (Negative)
[2017-12-20 01:42] LABS: Basophils # 0.1 10*3/uL (0.0-0.2); Basophils % 0.6 % (0.0-0.8); Eosinophils # 0.4 10*3/uL (0.0-0.87); Eosinophils % 4.3 % (0.00-10.9); Hematocrit 26.4 VOL% (35.7-47.0); Hemoglobin 9.6 GM/DL (12.0-16.0); Lymphocytes # 2.4 10*3/uL (1.4-4.0); Lymphocytes % 23.8 % (21.3-54.2); Mean Corpuscular HGB Conc 36.4 GM/DL (32-36); Mean Corpuscular Hemoglobin 31 PG (27-34); Mean Corpuscular Volume 84.6 FL (87-102); Mean Platelet Volume 10.3 FL (9.6-12.0); Monocytes # 0.8 10*3/uL (0.11-0.8); Monocytes % 8.2 % (1.7-12.7); NRBC # 0.02 10*3/uL; Neutrophils # 6.3 10*3/uL (1.4-7.4); Neutrophils % 62.1 % (38.7-73.9); Platelet Count 281 T/CUMM (130-400); Red Blood Count 3.12 MC/CUMM (3.8-5.5); Red Cell Distribution Width 12.9 % (9.3-17.3); White Blood Count 10.2 T/CUMM (4-12)
[2017-12-20 01:51] LABS: Ammonia 43 UMOL/L (11-32)
[2017-12-20 02:07] LABS: Alanine Aminotransferase 19 U/L (13-56); Albumin 3.5 G/DL (3.4-5.0); Alkaline Phosphatase 77 U/L (45-117); Aspartate Amino Transferase 11 U/L (0-37); Bilirubin,Total < 0.39 MG/DL (0.2-1.0); Blood Urea Nitrogen 19 MG/DL (7-18); Calcium 8.6 MG/DL (8.5-10.1); Glucose 108 MG/DL (74-106); Osmolality,Calculated 270.2 MOS/KG (273-304); Potassium 2.9 MMOL/L (3.5-5.1); Sodium 134 MMOL/L (136-145); Total Protein 7.2 G/DL (6.4-8.3); Troponin I Only < 0.015 NG/ML (0.00-0.045)
[2017-12-20] MEDS ORDERED: PANTOPRAZOLE INJ 80 MG in SODIUM CHLORIDE 0.9% 100 ML IV ONE (03:58)
[2017-12-20] MEDS ORDERED: PANTOPRAZOLE 40 MG VIAL IV ONE (04:26)
[2017-12-20] MEDS ORDERED: ONDANSETRON 4 MG/2 ML VIAL IV PRN (04:39)
[2017-12-20 05:08] LABS: PT Patient Result 10.1 SECS; Partial Thromboplastin Time 22.6 SECS (0-40)
[2017-12-20] MEDS: PANTOPRAZOLE INJ 200 MG in SODIUM CHLORIDE 0.9% 250 ML IV SCH (06:31)
[2017-12-20] MEDS: SODIUM CHLORIDE 0.9% 1,000 ML IV SCH (06:31)
[2017-12-20 07:24] LABS: Hematocrit 28.6 VOL% (35.7-47.0); Hemoglobin 9.7 GM/DL (12.0-16.0)
[2017-12-20] MEDS: POTASSIUM CHLORIDE RIDER 10 MEQ in PREMIX 1 EACH IV PRN ×5 (08:13→15:00)
[2017-12-20 11:23] LABS: Hematocrit 27.7 VOL% (35.7-47.0); Hemoglobin 9.6 GM/DL (12.0-16.0)
[2017-12-20 14:13] LABS: Hematocrit 25.7 VOL% (35.7-47.0); Hemoglobin 8.8 GM/DL (12.0-16.0)
[2017-12-20 17:45] LABS: Hematocrit 24.9 VOL% (35.7-47.0); Hemoglobin 8.6 GM/DL (12.0-16.0)
[2017-12-20 22:48] LABS: Hematocrit 26.4 VOL% (35.7-47.0); Hemoglobin 9.2 GM/DL (12.0-16.0)
[2017-12-21 03:22] LABS: Hematocrit 24.7 VOL% (35.7-47.0); Hemoglobin 8.6 GM/DL (12.0-16.0)
[2017-12-21 03:30] LABS: Basophils # 0.1 10*3/uL (0.0-0.2); Basophils % 0.4 % (0.0-0.8); Eosinophils # 0.2 10*3/uL (0.0-0.87); Eosinophils % 1.2 % (0.00-10.9); Hematocrit 25.5 VOL% (35.7-47.0); Hemoglobin 8.5 GM/DL (12.0-16.0); Immature Granulocytes % 0.6 %; Immature Granulocytes Absolute 0.08 #; Lymphocytes # 2.5 10*3/uL (1.4-4.0); Lymphocytes % 18.1 % (21.3-54.2); Mean Corpuscular HGB Conc 33.3 GM/DL (32-36); Mean Corpuscular Hemoglobin 30 PG (27-34); Mean Corpuscular Volume 89.8 FL (87-102); Mean Platelet Volume 10.7 FL (9.6-12.0); Monocytes # 1.1 10*3/uL (0.11-0.8); Neutrophils # 9.7 10*3/uL (1.4-7.4); Neutrophils % 71.7 % (38.7-73.9); Platelet Count 249 T/CUMM (130-400); Red Blood Count 2.84 MC/CUMM (3.8-5.5); Red Cell Distribution Width 13.2 % (9.3-17.3); White Blood Count 13.6 T/CUMM (4-12)
[2017-12-21 03:47] LABS: Bilirubin,Total 0.6 MG/DL (0.2-1.0); Calcium 8.5 MG/DL (8.5-10.1); Osmolality,Calculated 273.8 MOS/KG (273-304); Total Protein 5.9 G/DL (6.4-8.3)
[2017-12-21] MEDS ORDERED: PROPOFOL 200 MG/20 ML VIAL IV ONE (10:00)
[2017-12-21] MEDS ORDERED: LIDOCAINE 100 MG/5 ML SYRINGE ONE (10:00)
[2017-12-21] MEDS ORDERED: PHENYLEPHRINE 1 MG/10 ML SYRINGE IV ONE (10:00)
[2017-12-21] MEDS ORDERED: GLYCOPYRROLATE 0.4 MG/2 ML VIAL ONE (10:00)
[2017-12-21] MEDS: DONEPEZIL 5 MG TABLET PO SCH (10:04)
[2017-12-21] MEDS: PANTOPRAZOLE 40 MG TABLET PO SCH (10:04)
[2017-12-21] MEDS: BISACODYL 5 MG TABLET PO SCH ×2 (10:04→16:45)
[2017-12-21] MEDS: PANTOPRAZOLE INJ 200 MG in SODIUM CHLORIDE 0.9% 250 ML IV SCH (10:15)
[2017-12-21 12:32] LABS: Hematocrit 27.1 VOL% (35.7-47.0); Hemoglobin 8.8 GM/DL (12.0-16.0)
[2017-12-21] MEDS ORDERED: POLYETHYLENE GLYCOL POWDER 255 GM BOTTLE PO ONE (18:00)
[2017-12-21] MEDS ORDERED: MAGNESIUM CITRATE 300 ML BOTTLE PO ONE (21:00)
[2017-12-22] MEDS: BISACODYL 5 MG TABLET PO SCH (00:42)
[2017-12-22 02:00] LABS: Hematocrit 27.6 VOL% (35.7-47.0); Hemoglobin 9.3 GM/DL (12.0-16.0)
[2017-12-22] MEDS: DONEPEZIL 5 MG TABLET PO SCH (10:51)
[2017-12-22] MEDS: PANTOPRAZOLE 40 MG TABLET PO SCH (10:52)
[2017-12-22] MEDS ORDERED: LIDOCAINE 100 MG/5 ML SYRINGE ONE (11:00)
[2017-12-22] MEDS ORDERED: PROPOFOL 200 MG/20 ML VIAL IV ONE (11:00)
[2017-12-23 05:10] LABS: Basophils # 0.1 10*3/uL (0.0-0.2); Basophils % 0.5 % (0.0-0.8); Eosinophils # 0.6 10*3/uL (0.0-0.87); Eosinophils % 5.6 % (0.00-10.9); Hematocrit 23.5 VOL% (35.7-47.0); Immature Granulocytes % 0.4 %; Immature Granulocytes Absolute 0.05 #; Lymphocytes # 2.6 10*3/uL (1.4-4.0); Lymphocytes % 22.6 % (21.3-54.2); Mean Corpuscular Hemoglobin 31 PG (27-34); Mean Platelet Volume 10.5 FL (9.6-12.0); Monocytes # 0.8 10*3/uL (0.11-0.8); Monocytes % 6.9 % (1.7-12.7); Neutrophils # 7.2 10*3/uL (1.4-7.4); Platelet Count 256 T/CUMM (130-400); Red Blood Count 2.61 MC/CUMM (3.8-5.5); Red Cell Distribution Width 12.9 % (9.3-17.3); White Blood Count 11.3 T/CUMM (4-12)
[2017-12-23 05:42] LABS: Calcium 8.4 MG/DL (8.5-10.1); Osmolality,Calculated 277.5 MOS/KG (273-304); Potassium 3.5 MMOL/L (3.5-5.1)
[2017-12-23] MEDS: PANTOPRAZOLE 40 MG TABLET PO SCH (09:46)
[2017-12-23] MEDS: DONEPEZIL 5 MG TABLET PO SCH (09:46)
[2017-12-23] MEDS: SODIUM CHLORIDE 0.9% 1,000 ML IV SCH ×4 (10:46→14:49)
[2017-12-23] MEDS ORDERED: SODIUM CHLORIDE 0.9% 1,000 ML IV PRN ×2 (15:15→15:17)
[2017-12-23] MEDS ORDERED: FUROSEMIDE 20 MG/2 ML VIAL IV PRN (15:17)
[2017-12-23] MEDS: POLYETHYLENE GLYCOL POWDER 17 GM PACK PO SCH (20:46)
[2017-12-24] MEDS ORDERED: FUROSEMIDE 20 MG/2 ML VIAL IV PRN (02:30)
[2017-12-24 08:12] LABS: Hematocrit 36.9 VOL% (35.7-47.0); Hemoglobin 12.9 GM/DL (12.0-16.0)
[2017-12-24] MEDS: POLYETHYLENE GLYCOL POWDER 17 GM PACK PO SCH ×2 (09:40→21:07)
[2017-12-24] MEDS: DONEPEZIL 5 MG TABLET PO SCH (09:40)
[2017-12-24] MEDS: PANTOPRAZOLE 40 MG TABLET PO SCH (09:40)
[2017-12-24] MEDS: SODIUM CHLORIDE 0.9% 1,000 ML IV SCH (10:37)
[2017-12-25 04:28] LABS: Hematocrit 33.8 VOL% (35.7-47.0); Hemoglobin 12.1 GM/DL (12.0-16.0)
[2017-12-25 04:54] LABS: Calcium 8.7 MG/DL (8.5-10.1); Osmolality,Calculated 276.5 MOS/KG (273-304); Potassium 3.5 MMOL/L (3.5-5.1)
[2017-12-25] MEDS: DONEPEZIL 5 MG TABLET PO SCH (08:59)
[2017-12-25] MEDS: PANTOPRAZOLE 40 MG TABLET PO SCH (08:59)
[2017-12-25] MEDS: POLYETHYLENE GLYCOL POWDER 17 GM PACK PO SCH ×2 (08:59→21:57)
[2017-12-26] MEDS: PANTOPRAZOLE 40 MG TABLET PO SCH (08:46)
[2017-12-26] MEDS: POLYETHYLENE GLYCOL POWDER 17 GM PACK PO SCH ×2 (08:46→21:38)
[2017-12-26] MEDS: DONEPEZIL 5 MG TABLET PO SCH (08:46)
[2017-12-27] MEDS: PANTOPRAZOLE 40 MG TABLET PO SCH (09:42)
[2017-12-27] MEDS: DONEPEZIL 5 MG TABLET PO SCH (09:42)
[2017-12-27] MEDS: POLYETHYLENE GLYCOL POWDER 17 GM PACK PO SCH (09:42)
[2017-12-27 17:57] VITALS: BP 158/94
== END 2017-12-27 19:53 | disposition home health service (06) | DRG 394 ==
LOC: EDUNIT# → EDBD → N.ED 22:58 → N.EDINP 22:58 → N.TELES 12-20 05:25 → SUATTDRO 12-20 09:32
PROVIDERS: ADMIT Hospitalist; ATTEND Internal Medicine

== ENCOUNTER 2022-07-20 19:08 | Observation (INO) ==
[2022-07-20] MEDS ORDERED: SODIUM CHLORIDE 0.9% 1,000 ML IV STA (19:36)
[2022-07-20 20:10] LABS: Basophils # 0.1 10*3/uL (0.0-0.2); Basophils % 0.5 % (0.0-0.8); Eosinophils # 0.3 10*3/uL (0.0-0.87); Eosinophils % 2.1 % (0.00-10.9); Hematocrit 42.8 VOL% (35.7-47.0); Hemoglobin 13.9 GM/DL (12.0-16.0); Immature Granulocytes % 0.3 %; Immature Granulocytes Absolute 0.04 #; Lymphocytes # 1.7 10*3/uL (1.4-4.0); Lymphocytes % 12.3 % (21.3-54.2); Mean Corpuscular HGB Conc 32.5 GM/DL (32-36); Mean Corpuscular Volume 83.8 FL (87-102); Monocytes # 0.9 10*3/uL (0.11-0.8); Monocytes % 6.5 % (1.7-12.7); Neutrophils % 78.3 % (38.7-73.9); Platelet Count 276 T/CUMM (130-400); Red Blood Count 5.11 MC/CUMM (3.8-5.5); Red Cell Distribution Width 13.4 % (9.3-17.3); White Blood Count 13.6 T/CUMM (4-12)
[2022-07-20 20:31] LABS: Albumin 3.9 G/DL (3.4-5.0); Bilirubin,Total 0.6 MG/DL (0.20-1.00); Calcium 9.3 MG/DL (8.5-10.1); Osmolality,Calculated 271.1 MOS/KG (273-304); Total Protein 8.1 G/DL (6.4-8.2)
[2022-07-20 20:38] LABS: Bilirubin,Urine Negative (Negative); Blood, Urine Trace mg/dL (Negative); Glucose,Urine (UA) Negative (Negative); Ketones,Urine 15 mg/dL (Negative); Nitrite,Urine Negative (Negative); Protein,Urine 100 mg/dL (Negative); Urine Appearance Clear (Clear); Urine Color Yellow (Yellow); Urine Specific Gravity 1.025 (1.001-1.035); Urine Urobilinogen 0.2 eU/dL (<2.0)
[2022-07-20 20:43] LABS: Mucus,Urine Occasional /LPF (Occasional); RBC,Urine 1 /HPF (0-4); Squamous Epithelial Cell,Urine Occasional /HPF (0-10)
[2022-07-20 21:06] LABS: Barbiturates Screen,Urine Negative (Negative); Benzodiazepines Screen,Urine Negative (Negative); Cannabinoid Screen,Urine Negative (Negative); Opiate Screen,Urine Negative (Negative); Phencyclidine Screen,Urine Negative (Negative)
[2022-07-20] MEDS ORDERED: hydrALAZINE 20 MG/1 ML VIAL IV PRN (22:10)
[2022-07-20] MEDS ORDERED: ONDANSETRON 4 MG/2 ML VIAL IV PRN (22:10)
[2022-07-20] MEDS ORDERED: ACETAMINOPHEN 325 MG TABLET PO PRN (22:10)
[2022-07-20] MEDS ORDERED: SIMETHICONE CHEW 125 MG TABLET PO PRN (22:10)
[2022-07-20] MEDS ORDERED: ENOXAPARIN 80 MG/0.8 ML SYRINGE SUBCUT STA (22:27)
[2022-07-20] MEDS: PIPERACILLIN/TAZOBACTAM 3,375 MG in SODIUM CHLORIDE 0.9% 100 ML IV SCH (23:25)
[2022-07-21 02:34] LABS: Basophils # 0.1 10*3/uL (0.0-0.2); Basophils % 0.7 % (0.0-0.8); Eosinophils # 0.1 10*3/uL (0.0-0.87); Eosinophils % 1.3 % (0.00-10.9); Hematocrit 40.2 VOL% (35.7-47.0); Hemoglobin 13.3 GM/DL (12.0-16.0); Immature Granulocytes % 0.4 %; Immature Granulocytes Absolute 0.04 #; Lymphocytes # 2.2 10*3/uL (1.4-4.0); Lymphocytes % 21.8 % (21.3-54.2); Mean Corpuscular HGB Conc 33.1 GM/DL (32-36); Mean Corpuscular Volume 83.2 FL (87-102); Mean Platelet Volume 10.9 FL (9.6-12.0); Monocytes # 0.8 10*3/uL (0.11-0.8); Monocytes % 7.5 % (1.7-12.7); Neutrophils % 68.3 % (38.7-73.9); Platelet Count 262 T/CUMM (130-400); Red Blood Count 4.83 MC/CUMM (3.8-5.5); Red Cell Distribution Width 13.7 % (9.3-17.3); White Blood Count 10.1 T/CUMM (4-12)
[2022-07-21 03:12] LABS: Calcium 8.8 MG/DL (8.5-10.1); Osmolality,Calculated 276.7 MOS/KG (273-304); Thyroid Stimulating Hormone 2.46 uIU/ml (0.358-3.74); VLDL Cholesterol 27.8 MG/DL
[2022-07-21] MEDS: SODIUM CHLOR 0.9% KCL 20 MEQ 20 MEQ/1,000 ML BAG IV SCH (03:35)
[2022-07-21] MEDS: PIPERACILLIN/TAZOBACTAM 3,375 MG in SODIUM CHLORIDE 0.9% 100 ML IV SCH ×3 (06:40→23:00)
[2022-07-21] MEDS ORDERED: POTASSIUM CHLORIDE 20 MEQ TABLET PO ONE (08:11)
[2022-07-21] MEDS: PANTOPRAZOLE 40 MG TABLET PO SCH (10:50)
[2022-07-21] MEDS: DOCUSATE SODIUM 100 MG CAPSULE PO SCH ×2 (10:50→21:35)
[2022-07-21] MEDS: lisinopriL 10 MG TABLET PO SCH (10:51)
[2022-07-21] MEDS ORDERED: LORazepam 1 MG TABLET PO ONE (11:39)
[2022-07-21] MEDS ORDERED: SIMVASTATIN 40 MG TABLET PO SCH (21:00)
[2022-07-22 05:30] LABS: Basophils # 0.1 10*3/uL (0.0-0.2); Eosinophils # 0.5 10*3/uL (0.0-0.87); Eosinophils % 5.9 % (0.00-10.9); Hematocrit 38.2 VOL% (35.7-47.0); Hemoglobin 12.4 GM/DL (12.0-16.0); Immature Granulocytes % 0.3 %; Immature Granulocytes Absolute 0.02 #; Lymphocytes # 2.3 10*3/uL (1.4-4.0); Lymphocytes % 29.5 % (21.3-54.2); Mean Corpuscular HGB Conc 32.5 GM/DL (32-36); Mean Platelet Volume 11.1 FL (9.6-12.0); Monocytes # 0.5 10*3/uL (0.11-0.8); Monocytes % 6.5 % (1.7-12.7); Neutrophils % 56.8 % (38.7-73.9); Platelet Count 254 T/CUMM (130-400); Red Blood Count 4.55 MC/CUMM (3.8-5.5); Red Cell Distribution Width 14.1 % (9.3-17.3); White Blood Count 7.6 T/CUMM (4-12)
[2022-07-22 05:51] LABS: Calcium 8.8 MG/DL (8.5-10.1); Osmolality,Calculated 283.1 MOS/KG (273-304); Potassium 3.3 MMOL/L (3.5-5.1)
[2022-07-22] MEDS: PIPERACILLIN/TAZOBACTAM 3,375 MG in SODIUM CHLORIDE 0.9% 100 ML IV SCH ×2 (06:43→16:53)
[2022-07-22] MEDS: SODIUM CHLOR 0.9% KCL 20 MEQ 20 MEQ/1,000 ML BAG IV SCH ×3 (06:44→12:00)
[2022-07-22] MEDS ORDERED: POTASSIUM CHLORIDE 20 MEQ TABLET PO ONE (08:38)
[2022-07-22] MEDS ORDERED: ASPIRIN EC 81 MG TABLET PO SCH (09:00)
[2022-07-22] MEDS: PANTOPRAZOLE 40 MG TABLET PO SCH (10:04)
[2022-07-22] MEDS: DOCUSATE SODIUM 100 MG CAPSULE PO SCH (10:04)
[2022-07-22] MEDS: lisinopriL 10 MG TABLET PO SCH (10:04)
[2022-07-22 11:55] VITALS: BP 141/66
== END 2022-07-22 15:55 | disposition home health service (06) ==
LOC: EDUNIT# → EDBD → N.2W 19:08 → N.ED 19:08 → N.2W 07-21 02:00 → N.TELEN 07-22 06:09
PROVIDERS: ADMIT Internal Medicine; ATTEND Internal Medicine